=== PATIENT | male | born 2000 | race Hispanic/Latino ===

== ENCOUNTER 2019-12-25 21:43 | Emergency (ER) | payer SELFPAY ==
--- NOTE | 2019-12-25 21:48 | Event Note ---
ED Screening Note ED Screening Note: R GREAT TOE INJURY/LAC This initial assessment/diagnostic orders/clinical plan/treatment(s) is/are subject to change based on patients health status, clinical progression and re- assessment by fellow clinical providers in the ED. Further treatment and workup at subsequent clinical providers discretion. Patient/guardian urged not to elope from the ED as their condition may be serious if not clinically assessed and managed. Initial orders include: XRAY WOUND CARE
[2019-12-25] MEDS ORDERED: HYDROcodone/ACETAMINOPHEN 10-325MG TAB PO ONE (22:42)
--- NOTE | 2019-12-25 22:47 | XRay Report ---
CLINICAL DATA: MAIN TECHNICAL DATA: Three views were obtained, AP, lateral and oblique. FINDINGS: Fracture distal tuft is noted first digit. The visualized joint spaces are normal. IMPRESSION: Fracture first digit as described Signer Name: Jason Shepherd MD Signed: 12/25/2019 10:43 PM Workstation Name: [id number]
[2019-12-25 23:04] VITALS: BP 153/89
--- NOTE | 2019-12-25 23:05 | Emergency Department Report ---
ED Lower Extremity HPI - General Chief Complaint: Extremity Injury, Lower Stated Complaint: TOE INJURY Time Seen by Provider: 12/25/19 21:46 Source: patient Mode of arrival: Ambulatory Limitations: No Limitations - History of Present Illness Initial Comments: This is a 19-year-old male nontoxic, well nourished in appearance, no acute signs of distress presents to the ED with c/o of right great toe pain and abrasion. Patient stated that a metal crate fell onto his toe. Patient denies any other trauma. Patient denies any numbness, tingling, fever, chills, nausea, vomiting, chest pain, shortness of breath, headache, stiff neck. Patient denies any joint swelling or joint redness. Patient denies decreased range of motion. Patient stated has decreased gait due to pain. Patient denies any allergies or significant past medical history. MD Complaint: foot injury -: This evening Injury: Toes: Right Severity: mild Severity scale (0 -10): 8 Improves With: immobilization Worsens With: weight bearing, movement, palpation Associated Symptoms: able to partially bear weight. denies: snap/pop sensation, swelling, numbness, tingling, unable to bear weight - Related Data Previous Rx's Medication Instructions Recorded Last Taken Type Amoxicillin [Trimox CAP] 500 mg PO Q8H #30 capsule 06/27/13 Unknown Rx Naproxen 500 mg PO Q12H PRN #12 tablet 12/25/19 Unknown Rx cephALEXin [Keflex] 500 mg PO Q8HR #21 cap 12/25/19 Unknown Rx Allergies Allergy/AdvReac Type Severity Reaction Status Date / Time Sulfa (Sulfonamide Allergy Rash Verified 06/27/13 10:41 Antibiotics) ED Review of Systems ROS: Stated complaint: TOE INJURY Other details as noted in HPI Constitutional: denies: chills, fever Eyes: denies: eye pain, eye discharge, vision change ENT: denies: ear pain, throat pain Respiratory: denies: cough, shortness of breath, wheezing Cardiovascular: denies: chest pain, palpitations Endocrine: no symptoms reported Gastrointestinal: denies: abdominal pain, nausea, diarrhea Genitourinary: denies: urgency, dysuria Musculoskeletal: denies: back pain, joint swelling, arthralgia Skin: denies: rash, lesions Neurological: denies: headache, weakness, paresthesias Psychiatric: denies: anxiety, depression Hematological/Lymphatic: denies: easy bleeding, easy bruising ED Past Medical Hx - Social History Smoking Status: Never Smoker Substance Use Type: None - Medications Home Medications: Home Medications Medication Instructions Recorded Confirmed Last Taken Type Amoxicillin [Trimox CAP] 500 mg PO Q8H #30 capsule 06/27/13 Unknown Rx Naproxen 500 mg PO Q12H PRN #12 tablet 12/25/19 Unknown Rx cephALEXin [Keflex] 500 mg PO Q8HR #21 cap 12/25/19 Unknown Rx ED Physical Exam - General Limitations: No Limitations General appearance: alert, in no apparent distress - Head Head exam: Present: atraumatic, normocephalic - Extremities Exam Extremities exam: Present: normal inspection, full ROM, tenderness, normal capillary refill. Absent: joint swelling - Expanded Lower Extremity Exam Right Hip exam: Present: normal inspection, full ROM. Absent: tenderness, swelling Upper Leg exam: Present: normal inspection, full ROM. Absent: tenderness, swelling Knee exam: Present: normal inspection, full ROM. Absent: tenderness, swelling Lower Leg exam: Present: normal inspection, full ROM. Absent: tenderness, swelling Ankle exam: Present: normal inspection, full ROM. Absent: tenderness, swelling Foot/Toe exam: Present: normal inspection, full ROM, tenderness, nail avulsion (slight). Absent: swelling, abrasion, laceration, ecchymosis, deformity, crepidus, dislocation, erythema, amputation, puncture wound, foreign body, calcaneal tenderness, tenderness at base of 5th metatarsal, subungual hematoma Neuro vascular tendon exam: Present: no vascular compromise (Neurovascular within normal limits) Gait: Positive: observed and limited by pain - Back Exam Back exam: Present: normal inspection, full ROM. Absent: tenderness, CVA tenderness (R), CVA tenderness (L), muscle spasm, paraspinal tenderness, vertebral tenderness, rash noted - Neurological Exam Neurological exam: Present: alert, oriented X3, normal gait - Psychiatric Psychiatric exam: Present: normal affect, normal mood - Skin Skin exam: Present: warm, dry, intact, normal color. Absent: rash ED Course Vital Signs 12/25/19 21:53 Temperature 98.6 F Pulse Rate 105 H Respiratory 20 Rate Blood Pressure 153/89 O2 Sat by Pulse 98 Oximetry Vital Signs 12/25/19 21:53 Temperature 98.6 F Pulse Rate 105 H Respiratory 20 Rate Blood Pressure 153/89 O2 Sat by Pulse 98 Oximetry - Reevaluation(s) Reevaluation #1: 12/25/19 23:03 Patient is speaking in full sentences with no signs of distress noted. ED Lower Extremity MDM - Radiology Data Referring Physician: SUNITA GARCIA Patient Name: JOANA GALICIA Date of : 2000 Sex: Male Report Date: 2019-12-25 Report Status: Finalized [facility] [address] [place] [address] XRay Report Signed Patient: JOANA GALICIA MR#: [id number] 5 : 2000 Acct:[id number] Age/Sex: 19 / M ADM Date: 12/25/19 Loc: ED Attending Dr: Ordering Physician: SUNITA GARCIA Date of Service: 12/25/19 Procedure(s): XR toe(s) 2+V RT Accession Number(s): [id number] cc: SUNITA GARCIA Fluoro Time In Minutes: CLINICAL DATA: MAIN TECHNICAL DATA: Three views were obtained, AP, lateral and oblique. FINDINGS: Fracture distal tuft is noted first digit. The visualized joint spaces are normal. IMPRESSION: Fracture first digit as described Signer Name: Jason Shepherd MD Signed: 12/25/2019 10:43 PM Workstation Name: [id number] Transcribed By: Dictated By: Jason Shepherd MD Electronically Authenticated By: Jason Shepherd MD Signed Date/Time: 12/25/192242 DD/ 40 TD/TT: - Medical Decision Making This is a 19-year-old male that presents with right great toe fracture and nail avulsion. Patient is stable and was examined by me. X-ray has been obtained and dictated by the radiologist. Patient is notified of the x-ray report with noted by the patient. Patient has soaked his foot with Betadine and water. Sterile dressing applied. Patient was educated on proper wound care. No laceration noted. Patient does have normal gait with no tenderness and no joint swelling. No ecchymosis. no joint redness or swelling. Not warm to touch. No signs of cellulites present. Patient received metal front splint and ortho shoe. Post splint assessment: neurovasular intact; normal cap refill <2 second; normal sensation; denies decreaed sensation; normal ROM of digits. Patient was instructed to RICE therapy. Patient received [place] for pain and stated that family member will drive the patient home after discharge due to possible drowsiness. Patient is discharged with Naproxen and keflex. At time of discharge, the patient does not seem toxic or ill in appearance. No acute signs of distress noted. Patient agrees to discharge treatment plan of care. No further questions noted by the patient. Critical care attestation.: If time is entered above; I have spent that time in minutes in the direct care of this critically ill patient, excluding procedure time. ED Disposition Clinical Impression: Fracture of great toe of right foot Qualifiers: Encounter type: initial encounter Fracture type: closed Phalanx: unspecified phalanx Fracture alignment: nondisplaced Qualified Code(s): S92.404A - Nondisplaced unspecified fracture of right great toe, initial encounter for closed fracture Nail avulsion of toe Qualifiers: Encounter type: initial encounter Qualified Code(s): S91.209A - Unspecified open wound of unspecified toe(s) with damage to nail, initial encounter Disposition: DC-01 TO HOME OR SELFCARE Is pt being admited?: No Does the pt Need Aspirin: No Condition: Stable Instructions: Toe Fracture (ED) Additional Instructions: Follow-up with a orthopedic doctor in 3-5 days or if symptoms worsen and continue return to emergency room as soon as possible. No physical activity that extremity until cleared by orthopedic doctor Prescriptions: cephALEXin [Keflex] 500 mg PO Q8HR #21 cap Naproxen 500 mg PO Q12H PRN #12 tablet PRN Reason: Pain , Severe (7-10) Referrals: ARTEMIO FLORES MD [Primary Care Provider] - 3-5 Days BOSTON AZUL MD [Staff Physician] - 3-5 Days
== END 2019-12-25 23:40 | disposition home or self-care (01) ==
LOC: ED 21:43
DX: S92.421A Displaced fracture of distal phalanx of right great toe, initial encounter for closed fracture (principal); S91.201A Unspecified open wound of right great toe with damage to nail, initial encounter; Z79.2 Long term (current) use of antibiotics; Z79.899 Other long term (current) drug therapy; Z88.2 Allergy status to sulfonamides; W20.8XXA Other cause of strike by thrown, projected or falling object, initial encounter; Y93.89 Activity, other specified; Y92.89 Other specified places as the place of occurrence of the external cause; Y99.8 Other external cause status

== ENCOUNTER 2020-01-19 08:36 | Emergency (ER) | payer SELFPAY ==
[2020-01-19 08:53] VITALS: BP 126/86
[2020-01-19] MEDS ORDERED: SODIUM CHLORIDE 0.9% 1000 ML 1,000 ML IV ONE (10:23)
[2020-01-19] MEDS ORDERED: ONDANSETRON 4 MG/2 ML INJ IV ONE (10:23)
[2020-01-19] MEDS ORDERED: HYOSCYAMINE SUBL 0.125 MG TAB SL ONE (10:23)
--- NOTE | 2020-01-19 10:38 | Emergency Department Report ---
ED N/V/D HPI - General Chief complaint: Nausea/Vomiting/Diarrhea Stated complaint: N/V Time Seen by Provider: 01/19/20 10:10 Source: patient Mode of arrival: Ambulatory Limitations: No Limitations - History of Present Illness Initial comments: Patient is a 19-year-old male presents emergency room with complaints of nausea, vomiting, diarrhea that began yesterday. He states he has had multiple episodes of each. He states the last thing he ate 2 days ago was pizza. He denies anyone else with the same symptoms. He denies any known sick contacts or recent travel. He denies any abdominal pain, fever, cough, shortness of breath, urinary symptoms, blood or pus in the stool, hematemesis. He denies any past medical history. He has an allergy to sulfa. He is a non-smoker and nondrinker. - Related Data Previous Rx's Medication Instructions Recorded Last Taken Type Amoxicillin [Trimox CAP] 500 mg PO Q8H #30 capsule 06/27/13 Unknown Rx Naproxen 500 mg PO Q12H PRN #12 tablet 12/25/19 Unknown Rx cephALEXin [Keflex] 500 mg PO Q8HR #21 cap 12/25/19 Unknown Rx Hyoscyamine Subl [Levsin Sl 0.125 0.125 mg SL Q6HR PRN #10 tab 01/19/20 Unknown Rx TAB] Ondansetron [Zofran Odt] 4 mg PO Q8HR PRN #10 tab.rapdis 01/19/20 Unknown Rx Allergies Allergy/AdvReac Type Severity Reaction Status Date / Time Sulfa (Sulfonamide Allergy Rash Verified 06/27/13 10:41 Antibiotics) ED Review of Systems ROS: Stated complaint: N/V Other details as noted in HPI Comment: All other systems reviewed and negative ED Past Medical Hx - Past Medical History Previous Medical History?: No - Surgical History Past Surgical History?: No - Social History Smoking Status: Never Smoker Substance Use Type: None - Medications Home Medications: Home Medications Medication Instructions Recorded Confirmed Last Taken Type Amoxicillin [Trimox CAP] 500 mg PO Q8H #30 capsule 06/27/13 Unknown Rx Naproxen 500 mg PO Q12H PRN #12 tablet 12/25/19 Unknown Rx cephALEXin [Keflex] 500 mg PO Q8HR #21 cap 12/25/19 Unknown Rx Hyoscyamine Subl [Levsin Sl 0.125 0.125 mg SL Q6HR PRN #10 tab 01/19/20 Unknown Rx TAB] Ondansetron [Zofran Odt] 4 mg PO Q8HR PRN #10 tab.rapdis 01/19/20 Unknown Rx ED Physical Exam - General Limitations: No Limitations General appearance: alert, in no apparent distress, obese - Head Head exam: Present: atraumatic, normocephalic - Eye Eye exam: Present: normal appearance - ENT ENT exam: Present: mucous membranes moist - Respiratory Respiratory exam: Present: normal lung sounds bilaterally. Absent: respiratory distress, wheezes, rales, rhonchi, stridor, chest wall tenderness, accessory muscle use, decreased breath sounds, prolonged expiratory - Cardiovascular Cardiovascular Exam: Present: regular rate, normal rhythm, normal heart sounds. Absent: systolic murmur, diastolic murmur, rubs, gallop - GI/Abdominal GI/Abdominal exam: Present: soft, normal bowel sounds, other (protuberant abdomen, no mcbur[place] point ttp, no murphys sign, no cullens or hernández turners sign). Absent: distended, tenderness, guarding, rebound, rigid - Neurological Exam Neurological exam: Present: alert, oriented X3 - Psychiatric Psychiatric exam: Present: normal affect, normal mood - Skin Skin exam: Present: warm, dry, intact ED Course Vital Signs 01/19/20 08:48 Temperature 98.9 F Pulse Rate 120 H Respiratory 20 Rate Blood Pressure 126/86 O2 Sat by Pulse 96 Oximetry ED Medical Decision Making - Lab Data Result diagrams: 01/19/20 10:40 01/19/20 10:40 Lab Results 01/19/20 01/19/20 01/19/20 Range/Units 10:40 10:40 11:26 WBC 5.9 (4.5-11.0) K/mm3 RBC 5.64 H (3.65-5.03) M/mm3 Hgb 15.6 H (11.8-15.2) gm/dl Hct 47.2 H (35.5-45.6) % MCV 84 (84-94) fl MCH 28 (28-32) pg MCHC 33 (32-34) % RDW 13.8 (13.2-15.2) % Plt Count 257 (140-440) K/mm3 Lymph % (Auto) 12.6 L (13.4-35.0) % [place] % (Auto) 11.4 H (0.0-7.3) % Eos % (Auto) 0.1 (0.0-4.3) % Baso % (Auto) 0.2 (0.0-1.8) % Lymph # 0.7 L (1.2-5.4) K/mm3 [place] # 0.7 (0.0-0.8) K/mm3 Eos # 0.0 (0.0-0.4) K/mm3 Baso # 0.0 (0.0-0.1) K/mm3 Seg Neutrophils % 75.7 H (40.0-70.0) % Seg Neutrophils # 4.5 (1.8-7.7) K/mm3 Sodium 136 L (137-145) mmol/L Potassium 4.0 (3.6-5.0) mmol/L Chloride 98.5 (98-107) mmol/L Carbon Dioxide 20 L (22-30) mmol/L Anion Gap 22 mmol/L BUN 10 (9-20) mg/dL Creatinine 0.8 (0.8-1.5) mg/dL Estimated GFR > 60 ml/min BUN/Creatinine Ratio 13 % Glucose 100 (75-100) mg/dL Calcium 9.7 (8.4-10.2) mg/dL Total Bilirubin 0.40 (0.1-1.2) mg/dL AST 28 (5-40) units/L ALT 32 (7-56) units/L Alkaline Phosphatase 92 (35-129) units/L Total Creatine Kinase 166 (55-170) units/L Total Protein 7.8 (6.3-8.2) g/dL Albumin 4.8 (3.9-5) g/dL Albumin/Globulin Ratio 1.6 % Lipase 51 (13-60) units/L Urine Color Yellow (Yellow) Urine Turbidity Clear (Clear) Urine pH 5.0 (5.0-7.0) Ur Specific [place]cd[place] 1.025 (1.003-1.030) Urine Protein 30 mg/dl (Negative) mg/dL Urine Glucose (UA) Neg (Negative) mg/dL Urine Ketones Tr (Negative) mg/dL Urine Blood Neg (Negative) Urine Nitrite Neg (Negative) Urine Bilirubin Neg (Negative) Urine Urobilinogen < 2.0 (<2.0) mg/dL Ur Leukocyte Esterase Neg (Negative) Urine WBC (Auto) 2.0 (0.0-6.0) /HPF Urine RBC (Auto) 2.0 (0.0-6.0) /HPF U Epithel Cells (Auto) 1.0 (0-13.0) /HPF Urine Mucus 3+ /HPF - Medical Decision Making Patient is a 19-year-old male presents emergency room with complaints of nausea, vomiting, diarrhea that began yesterday. He states he has had multiple episodes of each. He states the last thing he ate 2 days ago was pizza. He denies any one else with the same symptoms. He denies any known sick contacts or recent travel. He denies any abdominal pain, fever, cough, shortness of breath, urinary symptoms, blood or pus in the stool, hematemesis. He denies any past medical history. He has an allergy to sulfa. He is a non-smoker and nondrinker. Initial vitals with mild tachycardia which improved upon auscultation. No abdominal tenderness on exam, no guarding, no rebound, no rigidity, normal bowel sounds, no peritoneal signs, protuberant abdomen. Labs are stable, normal white blood cell count, normal LFTs, normal lipase, normal kidney function. Patient given 1 L fluids, Zofran, Levsin and symptoms improved. Patient was able to tolerate p.o. intake and had no further episodes of vomiting or diarrhea while in the emergency department. Symptoms could be related to gastroenteritis versus viral syndrome. Patient given prescription for Zofran and Levsin. Discussed in detail with patient strict return precautions and the importance of reexamination in 2 days. advised pt please take medication as prescribed. Increase your water intake. Eat a bland liquid diet and slowly advance your diet as tolerated. Avoid anything sugary or greasy. Please follow-up with a primary care doctor in the next 2 days for reexamination. Return to emergency room immediately for any new or worsening symptoms including but not limited to fever, continued vomiting and not able to keep anything down, if you begin experiencing abdominal pain, blood or pus in the stool, blood in the vomit, etc. - Differential Diagnosis Gastroenteritis, gastritis, viral syndrome, appendicitis, colitis Critical care attestation.: If time is entered above; I have spent that time in minutes in the direct care of this critically ill patient, excluding procedure time. ED Disposition Clinical Impression: Nausea vomiting and diarrhea Disposition: DC-01 TO HOME OR SELFCARE Is pt being admited?: No Does the pt Need Aspirin: No Condition: Stable Instructions: Gastroenteritis (ED) Additional Instructions: Please take medication as prescribed. Increase your water intake. Eat a bland liquid diet and slowly advance your diet as tolerated. Avoid anything sugary or greasy. Please follow-up with a primary care doctor in the next 2 days for reexamination. Return to emergency room immediately for any new or worsening symptoms including but not limited to fever, continued vomiting and not able to keep anything down, if you begin experiencing abdominal pain, blood or pus in the stool, blood in the vomit, etc. Prescriptions: Hyoscyamine Subl [Levsin Sl 0.125 TAB] 0.125 mg SL Q6HR PRN #10 tab PRN Reason: abdominal cramping/diarrhea Ondansetron [Zofran Odt] 4 mg PO Q8HR PRN #10 tab.rapdis PRN Reason: Nausea And Vomiting Referrals: RISSA JUAN MD [Staff Physician] - 2-3 Days [facility] [Provider Group] - 2-3 Days [facility] [Outside] - 2-3 Days Forms: Work/School Release Form(ED) Time of Disposition: 12:26 Print Language: VINCENTIAN
[2020-01-19 11:18] LABS: Basophils % (Auto) 0.2 % (0.0-1.8); Eosinophils % (Auto) 0.1 % (0.0-4.3); Hematocrit 47.2 % (35.5-45.6); Hemoglobin 15.6 gm/dl (11.8-15.2); Lymphocytes # (Auto) 0.7 K/mm3 (1.2-5.4); Lymphocytes % (Auto) 12.6 % (13.4-35.0); Mean Corpuscular HGB Conc 33 % (32-34); Mean Corpuscular Volume 84 fl (84-94); Monocytes # (Auto) 0.7 K/mm3 (0.0-0.8); Monocytes % (Auto) 11.4 % (0.0-7.3); Platelet Count 257 K/mm3 (140-440); Red Blood Count 5.64 M/mm3 (3.65-5.03); Red Cell Distribution Width 13.8 % (13.2-15.2)
[2020-01-19 11:32] LABS: Alanine Aminotransferase 32 units/L (7-56); Albumin 4.8 g/dL (3.9-5); BUN/Creatinine Ratio 13; Blood Urea Nitrogen 10 mg/dL (9-20); Calcium 9.7 mg/dL (8.4-10.2); Hemolysis Index 14
[2020-01-19 11:55] LABS: Bilirubin,Urine NEG (Negative); Blood,Urine NEG (Negative); Color,Urine Yellow (Yellow); Mucus,Urine 3+ /HPF; Urobilinogen,Urine < 2.0 mg/dL (<2.0)
== END 2020-01-19 13:12 | disposition home or self-care (01) ==
LOC: ED 08:36
DX: R11.2 Nausea with vomiting, unspecified (principal); R19.7 Diarrhea, unspecified; Z79.2 Long term (current) use of antibiotics; Z79.899 Other long term (current) drug therapy; Z88.2 Allergy status to sulfonamides
CPT/HCPCS: 36415; 80053; 81001; 82550; 83690; 85025; 96361; 96374; 99283; J2405; J7030